=== PATIENT | male | born 1975 | race Caucasian/White ===

== ENCOUNTER 2019-11-10 08:22 | Emergency (ER) | payer SELFPAY ==
[2019-11-10 10:15] LABS: ABSOLUTE BASOPHILS # (AUTO) 0.1 10^3/uL (0.0-0.2); ABSOLUTE EOSINOPHILS # (AUTO) 0.4 10^3/uL (0.0-0.6); ABSOLUTE LYMPHOCYTES (AUTO) 2.7 10^3/uL (0.5-4.7); ABSOLUTE MONOCYTES (AUTO) 0.7 10^3/uL (0.1-1.4); BASOPHILS % (AUTO) 1.3 % (0-2); EOSINOPHILS % (AUTO) 3.9 % (0-6); HEMATOCRIT 48.4 % (37.9-51.0); HEMOGLOBIN 16.7 g/dL (13.5-17.0); LYMPHOCYTES % (AUTO) 27.5 % (13-45); MEAN CORPUSCULAR HEMOGLOBIN 29.9 pg (27.0-33.4); MEAN CORPUSCULAR HGB CONC 34.5 g/dL (32.0-36.0); MEAN CORPUSCULAR VOLUME 87 fl (80-97); PLATELET COUNT 243 10^3/uL (150-450); RED BLOOD COUNT 5.59 10^6/uL (4.35-5.55); RED CELL DISTRIBUTION WIDTH 13.1 % (11.5-14.0); SEGMENTED NEUTROPHILS % (AUTO) 60.3 % (42-78); TOTAL CELLS COUNTED % (AUTO) 100 %
--- NOTE | 2019-11-10 10:20 | RADIOLOGY REPORT (SQ) ---
EXAM DESCRIPTION: CHEST 2 VIEWS COMPLETED DATE/TIME: 11/10/2019 10:12 am REASON FOR STUDY: CP, SOB COMPARISON: None. EXAM PARAMETERS: NUMBER OF VIEWS: two views TECHNIQUE: Digital Frontal and Lateral radiographic views of the chest acquired. RADIATION DOSE: NA LIMITATIONS: none FINDINGS: LUNGS AND PLEURA: No opacities, masses or pneumothorax. No pleural effusion. MEDIASTINUM AND HILAR STRUCTURES: No masses or contour abnormalities. HEART AND VASCULAR STRUCTURES: Heart normal size. No evidence for failure. BONES: No acute findings. HARDWARE: None in the chest. OTHER: No other significant finding. IMPRESSION: NO ACUTE RADIOGRAPHIC FINDING IN THE CHEST. TECHNICAL DOCUMENTATION: JOB ID: [id number] [employer]- All Rights Reserved Reading location - IP/workstation name: [email or web address]
[2019-11-10 11:06] LABS: ALBUMIN 4.3 g/dL (3.5-5.0); ALKALINE PHOSPHATASE 84 U/L (38-126); ANION GAP 11 (5-19); ASPARTATE AMINO TRANSFERASE 31 U/L (17-59); BILIRUBIN,DIRECT 0.3 mg/dL (0.0-0.4); BILIRUBIN,TOTAL 0.8 mg/dL (0.2-1.3); BLOOD UREA NITROGEN 19 mg/dL (7-20); CALCIUM 9.6 mg/dL (8.4-10.2); CARBON DIOXIDE 26 mmol/L (22-30); CHLORIDE 102 mmol/L (98-107); CREATINE KINASE 234 U/L (55-170); GLUCOSE 128 mg/dL (75-110); TOTAL PROTEIN 6.8 g/dL (6.3-8.2)
[2019-11-10 11:18] LABS: CREATINE KINASE MB 2.78 ng/mL (<4.55)
[2019-11-10 11:20] LABS: TROPONIN I < 0.012 ng/mL
[2019-11-10] MEDS ORDERED: KETOROLAC TROMETHAMINE INJ/PF 30 MG/1 ML SDV IV ONE (11:22)
[2019-11-10] MEDS ORDERED: NORMAL SALINE 500 ML IV ONE (11:23)
--- NOTE | 2019-11-10 11:23 | ER Document Report ---
ED General - General Chief Complaint: Headache Stated Complaint: HEADACHE,NAUSEA Time Seen by Provider: 11/10/19 10:40 TRAVEL OUTSIDE OF THE [place] IN LAST 30 DAYS: No - HPI Notes: Patient is a 44-year-old male who presents emergency department for evaluation of a headache as well as chest pain. He states he has had a headache intermittently for about the last week. He actually states his pain is only minimal right now. Is in the back of his neck that radiates up to the bilateral aspects of his head posteriorly. He has a history of headaches similar to this in the past. He currently puts his pain at a 1 out of 5, rates it a pressure type pain that is not the worst of his life. Was gradual in onset. He denies any aggravating factors. He has had some improvement with acetaminophen and ibuprofen/aspirin at home. Patient also states he has chest pain. He was helping his boss move a 150 pound toolbox upstairs, he developed chest pain. He states it happened after the exertion. He states he has had intermittently since then. He denies it being brought about by exertion, he is unsure as to anything that really brings it about. He states it last for about an hour when it happens. He does have some associated shortness of breath and nausea when it happens. He is chest pain-free at this time. Patient notes that he had a history of high blood pressure, used to be on medication for it. He lost his insurance, no longer has a primary care provider. He does not know what his blood pressure runs on a regular basis. - Related Data Allergies/Adverse Reactions: No Known Allergies Allergy (Verified 11/10/19 08:47) Home Medications: None Past Medical History - General Information source: Patient - Social History Smoking Status: Current Every Day Smoker Chew tobacco use (# tins/day): No Frequency of alcohol use: Occasional Drug Abuse: None Family History: CAD, DM, Hypertension Patient has suicidal ideation: No Patient has homicidal ideation: No - Past Medical History Cardiac Medical History: Reports: Hx Hypertension Neurological Medical History: Reports: Hx Migraine Review of Systems - Review of Systems Constitutional: No symptoms reported EENT: No symptoms reported Cardiovascular: See HPI Respiratory: See HPI Gastrointestinal: See HPI Genitourinary: No symptoms reported Musculoskeletal: No symptoms reported Skin: No symptoms reported Neurological/Psychological: No symptoms reported Physical Exam - Vital signs Vitals: Temp Pulse Resp BP Pulse Ox 97.8 F 78 16 149/94 H 95 11/10/19 08:26 11/10/19 08:26 11/10/19 08:26 11/10/19 08:26 11/10/19 08:26 - Notes Notes: This is a 44-year-old male who appears his stated age in no acute distress. Vital signs reviewed, please refer to chart. Head is normocephalic, atraumatic. Pupils equal round, reactive to light. No midline tenderness step-off. He does have some paraspinal musculature tenderness noted at the base of the occiput and into the occipital musculature, this all reproduces pain. Neck is supple without meningismus. Heart is regular rate and rhythm. Lungs are clear to auscultation bilaterally. Abdomen is soft, nontender, normoactive bowel sounds throughout. Extremities without cyanosis, clubbing. Posterior calves are nontender. Peripheral pulses are equal. Skin is warm and dry. Patient is awake, alert, neurological exam is nonfocal. Patient is awake, alert, oriented x3. Cranial nerves II - XII are grossly intact without focal neurological deficits. Strength is plus 5 out of 5 bilateral upper and lower extremities. Sensation is intact. Reflexes symmetrical. Intact [id number], rapid alternating movements, [id number]. Course - Re-evaluation Re-evalutation: 11/10/19 11:25 Patient presents emergency department for evaluation. He has chest heaviness with associated shortness of breath and nausea, brought about by exertion. These chest pains have recurred since then. They are not necessarily exertional. The patient is obese, has a history of hypertension. He is unsure as to whether or not he has hyperlipidemia. He is chest pain-free now at this time. I will get and reorder a second troponin. His EKG failed to show any acute changes. We talked at length about addressing risk factors. He does donate plasma regularly, has his blood pressure checked there. I encouraged him to obtain these records, as well as get his blood pressure checked at drugstores regularly. He should follow-up with primary care in regards to this as well as his other risk factors. Certainly it would be worth discussing having an outpatient stress test and he voiced understanding to this. Otherwise, he is treated with Toradol and IV fluids for his headache. We will continue to monitor. 11/10/19 13:25 Repeat troponin is negative. He is to follow-up with primary care, evaluate risk factors. He is to return to the ED with worsening or new concerning symptoms of any sort. - Vital Signs Vital signs: Temp Pulse Resp BP Pulse Ox 97.8 F 78 16 147/103 H 97 11/10/19 08:26 11/10/19 08:26 11/10/19 12:11 11/10/19 12:11 11/10/19 12:11 - Laboratory Result Diagrams: 11/10/19 09:57 11/10/19 09:57 Laboratory results interpreted by me: 11/10/19 11/10/19 09:57 09:57 RBC 5.59 H Glucose 128 H Creatine Kinase 234 H - Diagnostic Test Radiology reviewed: Reports reviewed Radiology results interpreted by me: 11/10/19 11:27 Chest X-Ray 11/10/19 00:00 IMPRESSION: NO ACUTE RADIOGRAPHIC FINDING IN THE CHEST. - EKG Interpretation by Me Additional EKG results interpreted by me: 11/10/19 11:27 Sinus mechanism with a rate of 60 bpm. Normal axis and intervals. Nonspecific ST changes, but no acute changes concerning for infarction. No old studies available for comparison. Discharge - Discharge Clinical Impression: Tension headache Chest pain Qualifiers: Chest pain type: unspecified Qualified Code(s): R07.9 - Chest pain, unspecified Condition: Stable Disposition: HOME, SELF-CARE Instructions: Tension Headache ([facility]), Chest Pain of Unclear Cause ([facility]) Additional Instructions: Laboratory investigations were unremarkable here today. You need to follow-up with primary care, be sure all your risk factors are being addressed. Please keep track of your blood pressure, bring this to an appointment with primary care for further evaluation. Return to the emergency department with worsening or new concerning symptoms of any sort.
[2019-11-10 12:25] VITALS: BP 147/103
--- NOTE | 2019-11-10 17:18 | EKG REPORT ---
SEVERITY:- BORDERLINE ECG - SINUS RHYTHM BORDERLINE T ABNORMALITIES, INFERIOR LEADS : Confirmed by: Candace Mendez MD 10-Nov-2019 17:17:44
== END 2019-11-10 13:53 | disposition home or self-care (01) ==
LOC: ER 08:22
DX: G44.209 Tension-type headache, unspecified, not intractable (principal); R07.9 Chest pain, unspecified; R06.02 Shortness of breath; R11.0 Nausea; F17.200 Nicotine dependence, unspecified, uncomplicated
CPT/HCPCS: 93005; 99284; 96361; 96374; 36415; 82553; 82550; 85025; 80053; 84484; 71046; 93010; J1885; J7040

== ENCOUNTER → 2020-05-20 | Outpatient (CLI) | payer OTHER ==
--- NOTE | 2020-05-20 09:25 | EKG REPORT ---
SEVERITY:- NORMAL ECG - SINUS RHYTHM : Confirmed by: Isabelle Bess 20-May-2020 09:23:40
[2020-05-20 09:33] LABS: ABSOLUTE BASOPHILS # (AUTO) 0.1 10^3/uL (0.0-0.2); ABSOLUTE EOSINOPHILS # (AUTO) 0.2 10^3/uL (0.0-0.6); ABSOLUTE LYMPHOCYTES (AUTO) 2.3 10^3/uL (0.5-4.7); ABSOLUTE MONOCYTES (AUTO) 0.5 10^3/uL (0.1-1.4); ABSOLUTE NEUT (AUTO) 5.8 10^3/uL (1.7-8.2); BASOPHILS % (AUTO) 0.9 % (0-2); EOSINOPHILS % (AUTO) 2.6 % (0-6); HEMATOCRIT 46.3 % (37.9-51.0); HEMOGLOBIN 15.5 g/dL (13.5-17.0); LYMPHOCYTES % (AUTO) 26.2 % (13-45); MEAN CORPUSCULAR HEMOGLOBIN 29.4 pg (27.0-33.4); MEAN CORPUSCULAR HGB CONC 33.5 g/dL (32.0-36.0); MEAN CORPUSCULAR VOLUME 88 fl (80-97); MONOCYTES % (AUTO) 6.1 % (3-13); PLATELET COUNT 220 10^3/uL (150-450); RED BLOOD COUNT 5.29 10^6/uL (4.35-5.55); RED CELL DISTRIBUTION WIDTH 13.7 % (11.5-14.0); SEGMENTED NEUTROPHILS % (AUTO) 64.2 % (42-78); TOTAL CELLS COUNTED % (AUTO) 100 %
[2020-05-20 10:00] LABS: ALBUMIN 3.7 g/dL (3.5-5.0); ALKALINE PHOSPHATASE 61 U/L (38-126); ASPARTATE AMINO TRANSFERASE 22 U/L (17-59); BILIRUBIN,TOTAL 0.5 mg/dL (0.2-1.3); BLOOD UREA NITROGEN 19 mg/dL (7-20); CALCIUM 8.9 mg/dL (8.4-10.2); CHOLESTEROL 153.65 mg/dL (0-200); GLUCOSE 117 mg/dL (75-110); POTASSIUM 4.6 mmol/L (3.6-5.0); TOTAL PROTEIN 6.1 g/dL (6.3-8.2); TRIGLYCERIDES 209 mg/dL (<150)
[2020-05-20 10:05] LABS: ANION GAP 5 (5-19); CARBON DIOXIDE 28 mmol/L (22-30); CHLORIDE 105 mmol/L (98-107)
[2020-05-20 10:11] LABS: DIRECT LDL 99 mg/dL (<100); VLDL CHOLESTEROL 41.8 mg/dL (10-31)
== END ==
LOC: CCC 08:15
PROVIDERS: ATTEND Family Medicine
DX: I10 Essential (primary) hypertension (principal); R73.03 Prediabetes
CPT/HCPCS: 36415; 80053; 80061; 83036; 84443; 85025; 93005; 93010